=== PATIENT | female | born 1980 | race Asian ===

== ENCOUNTER 2016-06-17 12:45 | Emergency (ER) | payer OTHER ==
[~2016-06-17] VITALS: Ht 152.4 cm; Wt 53.5 kg
[2016-06-17 12:58] VITALS: Ht 152.4 cm; Wt 53.5 kg
[2016-06-17] MEDS ORDERED: morphine 4 MG/ML VIAL IV STA (14:51)
[2016-06-17] MEDS ORDERED: SOD CHLORIDE 0.9% 1,000 ML IV STA (14:51)
[2016-06-17] MEDS ORDERED: ONDANSETRON 4 MG INJ IV STA (14:51)
[2016-06-17 15:22] LABS: ADD UMIC YES; URINE BILIRUBIN (Dip) NEGATIVE (NEGATIVE); URINE BLOOD (Dip) 2+ (NEGATIVE); URINE COLOR LT. YELLOW (YELLOW); URINE GLUCOSE (Dip) NEGATIVE (NEGATIVE); URINE KETONES (Dip) NEGATIVE (NEGATIVE); URINE LEUKOCYTE ESTERASE (Dip) NEGATIVE (NEGATIVE); URINE NITRITE (Dip) NEGATIVE (NEGATIVE); URINE TOTAL PROTEIN (Dip) 1+ (NEGATIVE); URINE UROBILINOGEN (Dip) 0.2 E.U./dL (0.1-1.0)
[2016-06-17 15:33] LABS: BASOPHILS % 0.1 % (0.0-2.0); EOSINOPHILS % 0.2 % (0.0-7.0); HEMATOCRIT 40.5 % (37.0-47.0); HEMOGLOBIN 13.8 g/dl (12.0-16.0); LYMPHOCYTES # 1.3 10^3/ul (0.8-2.9); LYMPHOCYTES % 8.2 % (15.0-51.0); MEAN CORPUSCULAR HEMOGLOBIN 30.5 pg (29.0-33.0); MEAN CORPUSCULAR VOLUME 89.6 fl (82.0-101.0); MEAN PLATELET VOLUME 7.6 fl (7.4-10.4); MONOCYTE # 0.3 10^3/ul (0.3-0.9); MONOCYTES % 1.8 % (0.0-11.0); NEUTROPHIL # 14.2 10^3/ul (1.6-7.5); NEUTROPHILS % 89.7 % (39.0-77.0); PLATELET COUNT 313 10^3/UL (140-440); RED BLOOD COUNT 4.52 10^6/ul (4.20-5.40); RED CELL DISTRIBUTION WIDTH 12.5 % (11.5-14.5); UNCORRECTED WBC 15.8 10^3/ul (4.8-10.8); WHITE BLOOD COUNT 15.8 10^3/ul (4.8-10.8)
[2016-06-17 15:34] LABS: SQUAMOUS EPITHELIAL CELL,UR FEW
[2016-06-17 15:41] LABS: CONDITION 1
[2016-06-17 15:43] LABS: ALBUMIN 4.7 g/dl (3.3-4.9)
--- NOTE | 2016-06-17 15:43 | RADRPT ---
PROCEDURE: CT abdomen and pelvis without contrast. CLINICAL INDICATION: Abdominal pain. TECHNIQUE: CT scan of the abdomen and pelvis without contrast was performed on a multi-slice CT [facility] . Sagittal and coronal reformatted images were obtained from the axial source images. DLP 297.5 mGycm. CTDIvol 5.4 mGy COMPARISON: None FINDINGS: There is mosaic attenuation of the lungs that are partially visualized. There is limited evaluation of the solid viscera from the lack of IV contrast. There is collapse of the small and large bowel which accentuates the appearance of the wall of the b owel. Trace fat stranding is seen around loops of small bowel within the lower abdomen. The append ix is unremarkable. There is trace fluid within the pelvis and there is no free air. Follicular ch anges are partially visualized within the adnexal structures bilaterally. The uterus is grossly wit hin normal limits. There are no enlarged lymph nodes. The kidneys are symmetric bilaterally with no evidence of renal or ureteral calculi. There is no hy dronephrosis or perinephric stranding. There is normal density of the liver with no gross focal lesion or biliary ductal dilatation. The gallbladder is unremarkable without inflammation. The spleen is unremarkable without mass. The adrenal glands are within normal limits without mass. The pancreas is unremarkable without focal lesion or surrounding inflammatory changes. The aorta is unremarkable and there is no acute osseous abnormality. IMPRESSION: Mild inflammatory changes seen within the lower pelvis around loops of small bowel with overall filomena apse of the small and large bowel without visible obstruction. There is no appendicitis. This coul d represent a mild enteritis infectious or inflammatory origin. No evidence of renal or ureteral calculi or hydronephrosis. Mild mosaic attenuation of the lungs could represent air trapping or atelectasis. RPTAT: AA .Jeff Macias MD, MD Date Time Electronically viewed and signed by .Jeff Macias MD, MD on 06/17/2016 15:42 .Sophie/
[2016-06-17 15:46] LABS: BILIRUBIN,INDIRECT 0.5 mg/dl (0-1.1); BILIRUBIN,TOTAL 0.5 mg/dl (0.2-1.3); CREATININE 0.53 mg/dl (0.44-1.00)
[2016-06-17 15:47] LABS: ALBUMIN/GLOBULIN RATIO 1.06; CALCIUM 10.1 mg/dl (8.4-10.2); TOTAL PROTEIN 9.1 g/dl (6.1-8.1)
[2016-06-17] MEDS ORDERED: ACET500C5 PO (17:00)
[2016-06-17] MEDS ORDERED: ONDA4TAB14 PO (17:00)
[2016-06-17 17:13] VITALS: BP 135/80; PULSE 80; RESP 18; TEMP 98.3
--- NOTE | 2016-06-17 21:45 | ERD ---
ER Documentation Chief Complaint Date/Time DATE: 06/17/16 TIME: 21:39 Chief Complaint MID ABDOMINAL PAIN,DIARRHEA HPI 35-year-old female with no significant past medical history presents the ED complaining of abdominal pain, vomiting, diarrhea. Reports that she had 2 episodes of nonbilious nonbloody vomiting as well as one episode of nonbloody diarrhea. States that she had a sudden onset of severe abdominal pain. Reports that her abdominal pain feels a twisting sensation and rates it a 8 out of 10. Reports that when she walks it worsens the pain. Denies any fever, chills, chest pain, shortness of breath, wheezing, dysuria, urgency, frequency, flank pain, neck stiffness. Denies any sick contacts. ROS All systems reviewed and are negative except as per history of present illness. Medications Home Meds Active Scripts Acetaminophen* (Tylophen*) 500 Mg Capsule, 1 CAP PO Q6H Y for PAIN AND OR ELEVATED TEMP, #20 CAP Prov:ADELINA CARRILLO PA-C 06/17/16 Ondansetron (Ondansetron Odt) 4 Mg Tab.rapdis, 4 MG PO Q6H Y for NAUSEA AND/OR VOMITING, #10 TAB Prov:ADELINA CARRILLO PA-C 06/17/16 PMhx/Soc Medical and Surgical Hx: pt denies Medical Hx, pt denies Surgical Hx Hx Alcohol Use: No Hx Substance Use: No Hx Tobacco Use: No Smoking Status: Never smoker Physical Exam Vitals Vital Signs Date Time Temp Pulse Resp B/P Pulse Ox O2 Delivery O2 Flow Rate FiO2 06/17/16 17:13 98.3 80 18 135/80 98 06/17/16 12:58 98.1 73 18 152/86 98 Physical Exam Const: [id number], well-nourished. In no acute distress. Head: Atraumatic, normocephalic Eyes: Normal Conjunctiva without injection. No purulent discharge. ENT: Normal external ear, nose. Moist oropharynx without tonsillar exudates. Non -erythematous pharynx. Uvula midline. No drooling. No trismus. Neck: No cervical midline tenderness. Full range of motion. No meningismus. No cervical lymphadenopathy. No JVD. Resp: Clear to auscultation bilaterally. No wheezing, rhonchi, rales, or crackles. No accessory muscle use. No retractions. Cardio: Regular rate and rhythm. No murmurs, rubs or gallops. Abd: Soft, right and left lower quadrant tenderness, non distended. Normal bowel sounds. No palpable masses. No rebound tenderness. No guarding. Negative McBurney's point. Negative psoas sign. Negative obturator sign. Skin: No petechiae or rashes Back: No midline tenderness. No CVA tenderness. Ext: No cyanosis, or edema. Neur: Awake and alert. Normal gait. Normal coordination. Psych: Normal Mood and Affect Result Diagram: 06/17/16 1515 06/17/16 1515 Results 24 hrs Laboratory Tests Test 06/17/16 15:03 06/17/16 15:15 Urine Bilirubin NEGATIVE Urine Clarity CLEAR Urine Color LT. YELLOW Urine Glucose NEGATIVE% Urine Hemoglobin 2+ Urine Ketones NEGATIVE Urine Leukocyte Esterase NEGATIVE Urine Microscopic RBC 5-10/HPF Urine Microscopic WBC 0-2/HPF Urine Nitrite NEGATIVE Urine Specific [place]ike 1.025 Urine Squamous Epithelial Cells FEW Urine Total Protein 1+ Urine Urobilinogen 0.2 E.U./dL Urine pH 5.0 Alanine Aminotransferase (ALT/SGPT) 59IU/L Albumin 4.7g/dl Albumin/Globulin Ratio 1.06 Alkaline Phosphatase 83IU/L Anion Gap 19 Aspartate Amino Transf (AST/SGOT) 51IU/L Basophils # 0.010^3/ul Basophils % 0.1% Blood Urea Nitrogen 10mg/dl Calcium Level 10.1mg/dl Carbon Dioxide Level 29mmol/L Chloride Level 98mmol/L Creatinine 0.53mg/dl Direct Bilirubin 0.00mg/dl Eosinophils # 0.010^3/ul Eosinophils % 0.2% Globulin 4.40g/dl Glucose Level 114mg/dl Hematocrit 40.5% Hemoglobin 13.8g/dl Indirect Bilirubin 0.5mg/dl Lipase 116U/L Lymphocytes # 1.310^3/ul Lymphocytes % 8.2% Mean Corpuscular Hemoglobin 30.5pg Mean Corpuscular Hemoglobin Concent 34.0g/dl Mean Corpuscular Volume 89.6fl Mean Platelet Volume 7.6fl Monocytes # 0.310^3/ul Monocytes % 1.8% Neutrophils # 14.210^3/ul Neutrophils % 89.7% Nucleated Red Blood Cells # 0.010^3/ul Nucleated Red Blood Cells % 0.0/100WBC Platelet Count 05565^3/UL Potassium Level 4.0mmol/L Red Blood Count 4.5210^6/ul Red Cell Distribution Width 12.5% Sodium Level 142mmol/L Total Bilirubin 0.5mg/dl Total Protein 9.1g/dl White Blood Count 15.810^3/ul Current Medications Medications (Trade) Dose Ordered Sig/Mario Route PRN Reason Start Time Stop Time Status Last Admin Dose Admin Sodium Chloride (NS) 1,000 ml @ 1,000 mls/hr Q1H STAT IV 06/17/16 14:51 06/17/16 15:50 DC 06/17/16 15:20 Morphine Sulfate (morphine) 4 mg ONCE STAT IV 06/17/16 14:51 06/17/16 14:56 DC 06/17/16 15:20 Ondansetron HCl (Zofran Inj) 4 mg ONCE STAT IV 06/17/16 14:51 06/17/16 14:56 DC 06/17/16 15:20 Procedures/MDM This is a 35-year-old female with no significant past medical history presents the ED complaining of a sudden onset of abdominal pain associated with vomiting and diarrhea. Patient is afebrile nontoxic appearing. Patient was further worked up with CBC, CMP, lipase, UA, urine . Due to patient's severe abdominal pain, a CT of the abdomen and pelvis without contrast was ordered. Patient's pain and symptoms have improved after treatment with 4 mg IV morphine , 4 mg IV Zofran. PROCEDURE: CT abdomen and pelvis without contrast. CLINICAL INDICATION: Abdominal pain. TECHNIQUE: CT scan of the abdomen and pelvis without contrast was performed on a multi-slice CT scanner . Sagittal and coronal reformatted images were obtained from the axial source images. DLP 297.5 mGycm. CTDIvol 5.4 mGy COMPARISON: None FINDINGS: There is mosaic attenuation of the lungs that are partially visualized. There is limited evaluation of the solid viscera from the lack of IV contrast. There is collapse of the small and large bowel which accentuates the appearance of the wall of the bowel. Trace fat stranding is seen around loops of small bowel within the lower abdomen. The appendix is unremarkable. There is trace fluid within the pelvis and there is no free air. Follicular changes are partially visualized within the adnexal structures bilaterally. The uterus is grossly within normal limits. There are no enlarged lymph nodes. The kidneys are symmetric bilaterally with no evidence of renal or ureteral calculi. There is no hydronephrosis or perinephric stranding. There is normal density of the liver with no gross focal lesion or biliary ductal dilatation. The gallbladder is unremarkable without inflammation. The spleen is unremarkable without mass. The adrenal glands are within normal limits without mass. The pancreas is unremarkable without focal lesion or surrounding inflammatory changes. The aorta is unremarkable and there is no acute osseous abnormality. IMPRESSION: Mild inflammatory changes seen within the lower pelvis around loops of small bowel with overall collapse of the small and large bowel without visible obstruction. There is no appendicitis. This could represent a mild enteritis infectious or inflammatory origin. No evidence of renal or ureteral calculi or hydronephrosis. Mild mosaic attenuation of the lungs could represent air trapping or atelectasis. CBC: Leukocytosis 15.8. No e/o anemia. CMP: No e/o severe acidosis, alkalosis, renal failure, diabetic ketoacidosis, liver disease Lipase within normal limits. Urine: No leukocyte esterase, no nitrites, no hematuria. Urine : negative This case was discussed with my supervising physician, Dr. Parmar. Stated that patient likely has enteritis and can be managed on outpatient basis. Patient symptoms are likely due to viral etiology. A differential diagnosis considered includes but is not limited to gastritis, GERD, peptic ulcer disease, cholecystitis, choledocholithiasis, cholangitis, pancreatitis, appendicitis, bowel obstruction, ileus, volvulus, nephrolithiasis, pyelonephritis, hepatitis, perforated viscus, diverticulitis, abdominal hernia, acute abdomen, mesenteric ischemia or other emergent conditions. Discharge medications: Tylenol, Zofran Follow up with primary care physician in 1-2 days for referral to [facility]. Instructed patient to return to the ED sooner for any worsening symptoms. Patient's questions were answered. Patient understood and agreed with discharge plan. Patient discharged stable. Departure Diagnosis: Primary Impression: Abdominal pain Abdominal location: unspecified location Qualified Code: R10.9 - Abdominal pain, unspecified location Additional Impression: Vomiting and diarrhea Condition: Stable Patient Instructions: Abdominal Pain, Gastroenteritis, Viral (6Y-Adult), Vomiting And Diarrhea, Nonspecific (Adult) Referrals: COMMUNITY CLINICS YOU HAVE RECEIVED A MEDICAL SCREENING EXAM AND THE RESULTS INDICATE THAT YOU DO NOT HAVE A CONDITION THAT REQUIRES URGENT TREATMENT IN THE EMERGENCY DEPARTMENT. FURTHER EVALUATION AND TREATMENT OF YOUR CONDITION CAN WAIT UNTIL YOU ARE SEEN IN YOUR DOCTORS OFFICE WITHIN THE NEXT 1-2 DAYS. IT IS YOUR RESPONSIBILITY TO MAKE AN APPOINTMENT FOR FOLOW-UP CARE. IF YOU HAVE A PRIMARY DOCTOR --you should call your primary doctor and schedule an appointment IF YOU DO NOT HAVE A PRIMARY DOCTOR YOU CAN CALL OUR PHYSICIAN REFERRAL HOTLINE AT IF YOU CAN NOT AFFORD TO SEE A PHYSICIAN YOU CAN CHOSE FROM THE FOLLOWING [facility] CLINICS [facility] [address] [facility] [address] [address] [facility] [address] [facility] [facility] [facility] [address] [facility] [address] [facility]. [facility] [address] [facility]. [facility] [address] [facility]. [facility] YOU HAVE RECEIVED A MEDICAL SCREENING EXAM AND THE RESULTS INDICATE THAT YOU DO NOT HAVE A CONDITION THAT REQUIRES URGENT TREATMENT IN THE EMERGENCY DEPARTMENT. FURTHER EVALUATION AND TREATMENT OF YOUR CONDITION CAN WAIT UNTIL YOU ARE SEEN IN YOUR DOCTORS OFFICE WITHIN THE NEXT 1-2 DAYS. IT IS YOUR RESPONSIBILITY TO MAKE AN APPOINTMENT FOR FOLOW-UP CARE. IF YOU HAVE A PRIMARY DOCTOR --you should call your primary doctor and schedule and appointment IF YOU DO NOT HAVE A PRIMARY DOCTOR YOU CAN CALL OUR PHYSICIAN REFERRAL HOTLINE AT . IF YOU CAN NOT AFFORD TO SEE A PHYSICIAN YOU CAN CHOSE FROM THE FOLLOWING [facility] INSTITUTIONS: [facility] [address] [place] [address] [facility] [address] [place] [address] [facility] [address] [place] [address] [facility] URGENT C[facility]/SPECIALTIES Additional Instructions: FOLLOW UP WITH YOUR PRIMARY CARE PHYSICIAN TOMORROW.Return to this facility if you are not improving as expected. ADELINA CARRILLO PA-C Jun 17, 2016 21:44
== END 2016-06-17 17:15 | disposition home or self-care (01) ==
LOC: FTE 12:45
DX: R10.31 Right lower quadrant pain (principal); R10.32 Left lower quadrant pain; R11.10 Vomiting, unspecified; R19.7 Diarrhea, unspecified
CPT/HCPCS: 36415; 74176; 80053; 81001; 83690; 85025; 96374; 96375; 99285; J2270; J2405; J7030; 81003